=== PATIENT | female | born 1940 | race Caucasian/White ===

== ENCOUNTER 2017-02-27 15:23 | Emergency (ER) | payer OTHER ==
[2017-02-27] MEDS: 0.9 % SODIUM CHLORIDE 1,000 ML IV ONE ×2 (15:23→18:23)
--- NOTE | 2017-02-27 16:06 | ED Physician Documentation ---
Nausea/Vomiting/Diarrhea - HISTORIAN Historian: patient - HPI Stated Complaint: N/V/D Chief Complaint: Nausea,Vomiting,Diarrhea Onset: days ago (1) Duration: constant Last known Well Date: 02/26/17 Last Known Well Time: 19:00 Last known Well Code/Unknown Code: Unknown Timing: sudden onset Context: denies: out of country travel, bad food, recent trauma Severity: moderate Further Comments: yes (states today she has had two episodes of vomiting and one episode of incontinet diarrhea . Denies a fever. No cramps. No urinary issues. She has not tried any OTC meds) - Associated Symptoms Vomiting: frequent Diarrhea: copious Abdominal Pain: cramping - ROS CONST: none. denies: fever, chills CVS/RESP: denies: cough GI/: denies: constipation, problems urinating MS/SKIN/LYMPH: denies: joint pain NEURO/PSYCH: denies: headache - PAST HX Past History: other (HTN ) Surgeries/Procedures: none Immunizations: referred to PCP Allergies/Adverse Reactions: Allergies Allergy/AdvReac Type Severity Reaction Status Date / Time cefdinir Allergy Verified 02/27/17 15:35 Home Medications: Ambulatory Orders Medication Instructions Recorded Aspirin [Leo] 81 mg PO DAILY 02/27/17 Lisinopril [Prinivil] 20 mg PO DAILY 02/27/17 Losartan Potassium [Cozaar] 25 mg PO DAILY 02/27/17 Ondansetron HCl Rapdis [Zofran Odt] 4 mg PO Q8 PRN #30 tab 02/27/17 - SOCIAL HX Smoking History: non-smoker Drug Use: none - FAMILY HX Family History: none - VITAL SIGNS Vital Signs: Vital Signs Temp Pulse Resp BP Pulse Ox 96.0 F L 88 16 132/66 98 02/27/17 19:02 02/27/17 19:02 02/27/17 19:02 02/27/17 19:02 02/27/17 19:02 - REVIEWED ASSESSMENTS Nursing Assessment Reviewed: Yes Vitals Reviewed: Yes Progress - Progress Progress: 1735: Nausea improved after med. Continues to deny and abdominal pain or tenderness. DG 1815: Pt states the nausea and vomiting has returned and she has had another stool of diarrhea DG 1929: Pt is agreeable to discharge with discussed discharge instructions DG ED Results Lab/Radiology - Lab Results Lab Results: Lab Results 02/27/17 02/27/17 15:45 15:45 WBC 13.60 K/ul H K/ul (4.00-12.00) RBC 4.29 M/ul M/ul (3.90-5.20) Hgb 14.1 g/dL g/dL (12.0-16.0) Hct 40.7 % % (34.5-46.5) MCV 94.8 fl fl (80.0-100.0) MCH 32.8 pg pg (28.0-34.0) MCHC 34.6 g/dL g/dL (30.0-36.0) RDW 13.3 % % (11.3-14.3) Plt Count 207 K/mm3 K/mm3 (130-400) Seg Neutrophils % 62 % % (39-79) Lymphocytes % 1 % L % (16-50) Monocytes % 35 % H % (0-11) Eosinophils % 1 % % (0-7) Basophils % 1 % % (0-2) Plt Morphology Comment Normal (NORMAL) RBC Morph Comment Normal (NORMAL) Sodium 140 mmol/L mmol/L (136-145) Potassium 4.1 mmol/L mmol/L (3.5-5.1) Chloride 108 mmol/L H mmol/L (98-107) Carbon Dioxide 21 mmol/L L mmol/L (22-30) BUN 20 mg/dL H mg/dL (7-17) Creatinine 0.90 mg/dL mg/dL (0.52-1.04) Estimated Creat Clear 87 Est GFR ( Amer) > 60 (60 - ) Est GFR (Non-Af Amer) > 60 (60 - ) Glucose 105 mg/dL mg/dL (74-106) Calcium 8.7 mg/dL mg/dL (8.4-10.2) Total Bilirubin 1.1 mg/dL mg/dL (0.2-1.3) AST 24 U/L U/L (15-46) ALT 38 U/L U/L (13-69) Alkaline Phosphatase 91 U/L U/L (38-126) Total Protein 6.2 g/dL L g/dL (6.3-8.2) Albumin 3.5 g/dL g/dL (3.5-5.0) - Orders Orders: ED Orders Category Date Time Status Place IV Lock 1T Care 02/27/17 15:44 Active CBC/PLATELET/DIFF Stat Lab 02/27/17 15:45 Completed CMP Stat Lab 02/27/17 15:45 Completed UA W/MICRO IF INDICATED Routine Lab 02/27/17 17:26 Ordered 0.9 % Sodium Chloride [Normal Saline] 1,000 ml Med 02/27/17 15:44 Discontinued IV Q1H 0.9 % Sodium Chloride [Normal Saline] 1,000 ml Med 02/27/17 18:15 Discontinued IV Q1H Diphenoxylate HCl/Atropine [Lomotil] Med 02/27/17 18:14 Discontinued 1 each PO NOW ONE Ondansetron HCl/Pf [Zofran 4 mg/2 ml] Med 02/27/17 17:26 Discontinued 4 mg .ROUTE .STK-MED ONE Ondansetron HCl/Pf [Zofran 4 mg/2 ml] Med 02/27/17 17:27 Discontinued 4 mg IVP NOW ONE Nausea Physical Exam - EXAM General Appearance: no acute distress, alert EENT: eye inspection normal Neck: normal inspection Respiratory: no resp distress, chest non-tender, breath sounds normal CVS: reg rate & rhythm, heart sounds normal, equal pulses, no murmur Abdomen: non-tender, no organomegaly. No: tenderness, guarding, rebound Skin: warm/dry, normal color Extremities: non-tender, normal range of motion Neuro/Psych: oriented X3, CN's nml as tested, motor nml, sensation nml Discharge Clincal Impression: Gastroenteritis Prescriptions: Ondansetron HCl Rapdis [Zofran Odt] 4 mg PO Q8 PRN #30 tab PRN Reason: Nausea / Vomiting Referrals: Primary Doctor,No [Primary Care Provider] - 2 Days Condition: Stable Disposition: 01 HOME, SELF-CARE Decision to Admit: NO Date of Decison to Admit: 02/27/17 Decision Time: 19:49
[2017-02-27 17:19] LABS: MEAN CORPUSCULAR HEMOGLOBIN 32.8 pg (28.0-34.0); MEAN CORPUSCULAR VOLUME 94.8 fl (80.0-100.0)
[2017-02-27 17:24] LABS: eGFR (African) > 60; eGFR (Non-African) > 60
[2017-02-27] MEDS: ONDANSETRON HCL/PF 4 MG/ 2ML VIAL ONE (17:30)
[2017-02-27] MEDS: ONDANSETRON HCL/PF 4 MG/ 2ML VIAL IVP ONE (17:30)
[2017-02-27] MEDS: DIPHENOXYLATE HCL/ATROPINE 1 EACH TABLET PO ONE (18:23)
[2017-02-27 18:30] LABS: BASOPHILS % 1 % (0-2); EOSINOPHILS % 1 % (0-7); MONOCYTES % 35 % (0-11); SEGMENTED NEUTROPHILS % 62 % (39-79)
[2017-02-27 19:11] VITALS: BP 132/66
== END 2017-02-27 19:40 | disposition home or self-care (01) ==
LOC: ED 15:23
DX: K52.9 Noninfective gastroenteritis and colitis, unspecified (principal)
CPT/HCPCS: 80053; 85025; J2405; J7030; 96360; 96361; 96374; 99283; S1016